=== PATIENT | female | born 1985 | race Caucasian/White ===

== ENCOUNTER 2016-08-21 00:23 | Emergency (ER) | payer BC ==
[~2016-08-21] VITALS: Ht 162.6 cm; Wt 77.1 kg
[2016-08-21 00:25] VITALS: BP 119/71
[2016-08-21] MEDS ORDERED: PERCOCET 5/31 TABLET PO (01:22)
[2016-08-21] MEDS ORDERED: MOTRIN800 MG PO (01:22)
== END 2016-08-21 01:39 | disposition home or self-care (01) ==
LOC: EME 00:23
DX: S60.221A Contusion of right hand, initial encounter (principal); S63.91XA Sprain of unspecified part of right wrist and hand, initial encounter; W22.09XA Striking against other stationary object, initial encounter; Y92.009 Unspecified place in unspecified non-institutional (private) residence as the place of occurrence of the external cause
CPT/HCPCS: 73130; 99281; 99283